=== PATIENT | male | born 1950 | race Caucasian/White ===

== ENCOUNTER 2022-04-14 19:21 | Inpatient (IN) | payer MEDICARE ==
[~2022-04-14] VITALS: Ht 162.6 cm; Wt 56.7 kg
[2022-04-14] MEDS ORDERED: CARAFATE 1 GM TA1 GM PO (21:02)
[2022-04-14] MEDS ORDERED: PROTONIX 40 MG40 M1 PO (21:04)
[2022-04-14] MEDS ORDERED: MEGACE TAB 40 M40 MG PO (21:05)
[2022-04-14] MEDS ORDERED: AMIODARONE HCL200 MG PO (21:06)
[2022-04-14] MEDS ORDERED: LACTULOSE10 GM/151 PO (21:06)
[2022-04-14] MEDS ORDERED: ALBUTEROL1.25 MG/3 INH (21:07)
[2022-04-14] MEDS ORDERED: MOVANTIK25 MG PO (21:08)
[2022-04-14] MEDS ORDERED: OMEGA-3 ACID ETH1 GM PO (21:09)
[2022-04-14] MEDS ORDERED: MORPHINE SULFAT30 M4 PO (21:10)
[2022-04-14] MEDS ORDERED: HYDROCHLOROTHIA25 MG PO (21:10)
[2022-04-14 22:56] LABS: HEMOGLOBIN 9.9 gm/dl (14.0-17.5); RED BLOOD COUNT 3.33 M/UL (4.20-5.50); WHITE BLOOD COUNT 21.3 K/UL (4.5-11.0)
[2022-04-14 23:33] LABS: BUN/CREATININE RATIO 34 (0-10)
[2022-04-15 06:50] LABS: HEMOGLOBIN 9.8 gm/dl (14.0-17.5); RED BLOOD COUNT 3.39 M/UL (4.20-5.50)
--- NOTE | 2022-04-15 12:54 | NUR ---
FINGER STICK GLUCOSE CHECKED AT 1250 AFTER GIVING INSULIN AND 1 AMP D50. BG 160.
[2022-04-16 08:15] LABS: HEMOGLOBIN 10.7 gm/dl (14.0-17.5)
[2022-04-16 08:41] LABS: RED BLOOD COUNT 3.75 M/UL (4.20-5.50); WHITE BLOOD COUNT 32.5 K/UL (4.5-11.0)
[2022-04-16 11:17] LABS: HBSAG SCREEN Negative (Negative); HCV AB <0.1 (0.0-0.9); HEP A AB, IGM Negative (Negative); HEP B CORE AB, IGM Negative (Negative)
[2022-04-16 17:38] LABS: WHITE BLOOD COUNT 31.4 K/UL (4.5-11.0)
== END 2022-04-20 10:17 | DRG 871 ==
LOC: CCU 19:21
PROVIDERS: Internal Medicine; ADMIT Internal Medicine
PROC: 3E03329 Introduction of Other Anti-infective into Peripheral Vein, Percutaneous Approach (ICD-10-PCS; principal; 2022-04-14)
PROC: 3E033XZ Introduction of Vasopressor into Peripheral Vein, Percutaneous Approach (ICD-10-PCS; 2022-04-14)
PROC: 5A09357 Assistance with Respiratory Ventilation, Less than 24 Consecutive Hours, Continuous Positive Airway Pressure (ICD-10-PCS; 2022-04-14)
PROC: B24BZZZ Ultrasonography of Heart with Aorta (ICD-10-PCS; 2022-04-15)
PROC: 5A0935A Assistance with Respiratory Ventilation, Less than 24 Consecutive Hours, High Flow/Velocity Cannula (ICD-10-PCS; 2022-04-15)
PROC: 5A09357 Assistance with Respiratory Ventilation, Less than 24 Consecutive Hours, Continuous Positive Airway Pressure (ICD-10-PCS; 2022-04-16)
DX: A41.9 Sepsis, unspecified organism (principal); R65.21 Severe sepsis with septic shock; J18.9 Pneumonia, unspecified organism; K72.00 Acute and subacute hepatic failure without coma; J96.21 Acute and chronic respiratory failure with hypoxia; J96.22 Acute and chronic respiratory failure with hypercapnia; C34.90 Malignant neoplasm of unspecified part of unspecified bronchus or lung; E87.2 Acidosis; J98.19 Other pulmonary collapse; J44.1 Chronic obstructive pulmonary disease with (acute) exacerbation; I47.1 Supraventricular tachycardia; J44.0 Chronic obstructive pulmonary disease with (acute) lower respiratory infection; Z20.822 Contact with and (suspected) exposure to COVID-19; R74.01 Elevation of levels of liver transaminase levels; K20.90 Esophagitis, unspecified without bleeding; I12.9 Hypertensive chronic kidney disease with stage 1 through stage 4 chronic kidney disease, or unspecified chronic kidney disease; N18.9 Chronic kidney disease, unspecified; R13.10 Dysphagia, unspecified; E87.5 Hyperkalemia; R53.81 Other malaise; I48.0 Paroxysmal atrial fibrillation; Z66 Do not resuscitate; Z79.899 Other long term (current) drug therapy; Z92.21 Personal history of antineoplastic chemotherapy; Z98.890 Other specified postprocedural states; Z80.1 Family history of malignant neoplasm of trachea, bronchus and lung; Z90.89 Acquired absence of other organs; Z87.891 Personal history of nicotine dependence
CPT/HCPCS: 36415; 36600; 71045; 80048; 80053; 80074; 80202; 82550; 82553; 82803; 82962; 83605; 84484; 85007; 85025; 85027; 86140; 87040; 92610; 93005; 93308; 94640; 94660; 94760; C9113; J1160; J1650; J2270; J2370; J2543; J3370; J7030; J7070